=== PATIENT | male | born 1985 | race Caucasian/White ===

== ENCOUNTER 2016-11-15 23:14 | Emergency (ER) | payer OTHER ==
[~2016-11-15] VITALS: Ht 170.2 cm; Wt 95.3 kg
--- NOTE | 2016-11-16 00:45 | ED GI/GU/ABDOMINAL COMPLAINT ---
History of Present Illness General Chief Complaint: Male Genitourinary Problems Stated Complaint: CAN'T UNRINATE X2 DAYS BURNING Source: patient Exam Limitations: no limitations Vital Signs & Intake/Output Vital Signs & Intake/Output Vital Signs Date Time Temp Pulse Resp B/P B/P Pulse O2 O2 Flow FiO2 Mean Ox Delivery Rate 11/16 0039 Room Air 11/15 2353 98.9 97 16 132/89 98 Room Air ED Intake and Output 11/16 0000 11/15 1200 Intake Total Output Total Balance Patient 210 lb Weight Weight Reported by Patient Measurement Method Allergies Coded Allergies: ibuprofen (From MOTRIN) (Unsure 10/02/15) Triage Note: TRIAGE: PAIN AND HESITANCY AND URGENCY OF URINATION X2 DAYS. REPORTS UNPROTECTED SEX 4-5 DAYS AGO. DENIES PENILE DISCHARGE. AFEBRILE. URINE TRIO SENT FROM TRIAGE Triage Nurses Notes Reviewed? yes HPI: Patient presents with a three-day history of dysuria, frequency and dark color to his urine. Patient is nervous because he had unprotected sex last week. Patient denies any penile discharge. There is no flank pain. There is no nausea or vomiting. There is no abdominal pain. There is no pain when he is not urinating. He denies any pedal or chills. Past History Travel History Traveled to [place] past 21 day No Medical History Any Pertinent Medical History? none Neurological: NONE EENT: NONE Cardiovascular: NONE Respiratory: NONE Gastrointestinal: NONE Hepatic: NONE Renal: NONE Musculoskeletal: NONE Psychiatric: NONE Endocrine: NONE Blood Disorders: NONE Cancer(s): NONE QUALITY ASSURANCE LAB TECHNICIAN/Reproductive: NONE Tetanus Vaccine: 10/02/15 Surgical History Surgical History: non-contributory, N Psychosocial History What is your primary language Citizen [place] Tobacco Use: Current Daily Use Daily Tobacco Use Amount/Type: => 5 Cigarettes daily ETOH Use: occasional use Illicit Drug Use: denies illicit drug use Family History Hx Contributory? No Review of Systems Review of Systems Constitutional: Reports: no symptoms. EENTM: Reports: no symptoms. Respiratory: Reports: no symptoms. Cardiovascular: Reports: no symptoms. GI: Reports: no symptoms. Genitourinary: Reports: see HPI, dysuria, frequency, hematuria, urgency. Musculoskeletal: Reports: no symptoms. Skin: Reports: no symptoms. Neurological/Psychological: Reports: no symptoms. Hematologic/Endocrine: Reports: no symptoms. Immunologic/Allergic: Reports: no symptoms. All Other Systems: Reviewed and Negative Physical Exam Physical Exam General Appearance: well developed/nourished, alert, awake, anxious Head: atraumatic, normal appearance Eyes: Bilateral: PERRL, EOMI. Ears, Nose, Throat, Mouth: hearing grossly normal, moist mucous membrane Neck: normal inspection, supple, full range of motion Respiratory: normal breath sounds, chest non-tender, no respiratory distress, lungs clear Cardiovascular: regular rate/rhythm, normal peripheral pulses Gastrointestinal: normal bowel sounds, soft, non-tender, no organomegaly Back: normal inspection, normal range of motion, NO CVA TENDERNESS Extremities: normal range of motion Neurologic/Psych: no motor/sensory deficits, awake, alert, oriented x 3, normal gait, normal mood/affect Skin: intact, normal color, warm/dry Core Measures ACS in differential dx? No Severe Sepsis Present: No Septic Shock Present: No Progress Differential Diagnosis: ureterolithiasis, urinary retention, urethritis, UTI/ pyelo Plan of Care: Orders Procedure Date/time Status COMPREHENSIVE METABOLIC PANEL 11/16 0046 Complete CBC WITHOUT DIFFERENTIAL 11/16 0046 Complete Add-on Test (ER Only) 11/16 0025 Active URINALYSIS 11/15 2324 Complete Laboratory Tests 11/16/16 0100: Anion Gap 13, Estimated GFR > 60, BUN/Creatinine Ratio 15.0, Glucose 112 H, Calcium 9.6, Total Bilirubin 0.6, AST 24, ALT 33, Alkaline Phosphatase 48, Total Protein 6.5, Albumin 4.2, Globulin 2.3, Albumin/Globulin Ratio 1.8, CBC w Diff NO MAN DIFF REQ, RBC 4.65 L, MCV 89.4, MCH 30.0, RDW 12.8, MPV 6.8 L, Gran % 56.3, Lymphocytes % 32.3, Monocytes % 8.7, Eosinophils % 2.3, Basophils % 0.4, Absolute Granulocytes 5.7, Absolute Lymphocytes 3.3, Absolute Monocytes 0.9 H, Absolute Eosinophils 0.2, Absolute Basophils 0, PUBS MCHC 33.5 11/15/16 2330: Urine Color YEL, Urine Clarity CLDY H, Urine pH 6.0, Ur Specific [place] 1.020, Urine Protein 30 H, Urine Ketones TRACE H, Urine Nitrite NEG, Urine Bilirubin NEG@ICTO, Urine Urobilinogen 1.0, Ur Leukocyte Esterase NEG, Ur Microscopic SEDIMENT EXAMINED, Urine RBC >75 H, Urine Crystals 1+ CA OX H, Urine Mucus FEW , Urine Hemoglobin LARGE H, Urine Glucose NEG Diagnostic Imaging: Viewed by Me: CT Scan. Discussed w/RAD: CT Scan. Radiology Impression: PATIENT: AMALIA JENKINS JR PRESENT AGE: 31 PATIENT ACCOUNT NO: [id number] : 87 LOCATION: [facility], [place] ORDERING PHYSICIAN: STEVE STALLWORTH MD SERVICE DATE: 11/16/16 EXAM TYPE: CAT - CT ABD & PELVIS W/O IV CONTRAS EXAMINATION: CT ABDOMEN AND PELVIS WITHOUT CONTRAST CLINICAL INFORMATION: Kidney stone. COMPARISON: CT scan of abdomen and pelvis 05/13/2010. TECHNIQUE: Multidetector volumetric imaging was performed from the superior aspect of the liver through the pubic symphysis. Sagittal and coronal reformatted images were obtained on the technologist's workstation. DLP: 802.83 mGy-cm FINDINGS: LUNG BASES: There is minimal bibasilar subsegmental atelectasis. No pleural or pericardial effusion. LIVER, GALLBLADDER , AND BILIARY TREE: Unenhanced liver attenuation is homogeneous with grossly no evidence of a discrete hepatic parenchymal mass. The gallbladder is unremarkable with no evidence of radiopaque gallstones, gallbladder wall thickening, or obvious pericholecystic inflammatory changes. PANCREAS: Unremarkable. SPLEEN: Unremarkable. ADRENAL GLANDS: Unremarkable. KIDNEYS, URETERS, AND BLADDER: There is a 2 mm calculus that appears be located within the urinary bladder best illustrated on axial image 707 of 848 series 3. There is mild stranding along the course of the right ureter. No calcifications visualized within either kidney or either ureter. No abnormal perinephric inflammation or collection. GASTROINTESTINAL TRACT: The stomach is physiologically distended with fluid. Small bowel and colon is normal. Appendix is normal. There is no free intraperitoneal air or fluid. ABDOMINAL WALL: No significant hernia is appreciated. LYMPH NODES: Normal. VASCULAR: Unremarkable. OSSEOUS STRUCTURES: Unremarkable. IMPRESSION: There is a 2 mm calculus located within the urinary bladder and mild stranding along the course of the right ureter. No additional calculi are visualized within either kidney or either ureter. DICTATED BY: RYANN FRYE,RUTH Mckee DATE/TIME DICTATED:11/16/16 0243 BRINEYARD SUPERVISOR: CRISTIN DATE/TIME TRANSCRIBED:11/16/16 / 0243 CONFIDENTIAL, DO NOT COPY WITHOUT APPROPRIATE AUTHORIZATION. <Electronically signed in Other Vendor System> SIGNED BY: RUTH GARZON MD 11/16/16 0250 Initial ED EKG: none Departure Departure Disposition: HOME OR SELF CARE Condition: Stable Clinical Impression Primary Impression: Kidney stone Referrals: PATIENT HAS NO PRIMARY CARE DR (PCP/Family) ZACHARY CHAMPION MD Additional Instructions: DRINK PLENTY OF FLUIDS RETURN FOR ANY CONCERNS Departure Forms: Customer Survey General Discharge Information
[2016-11-16 01:05] LABS: ABSOLUTE BASOPHIL COUNT 0 /CUMM (0.0-0.2); ABSOLUTE EOSINOPHIL COUNT 0.2 /CUMM (0.0-0.7); ABSOLUTE GRANULOCYTE CT 5.7 /CUMM (1.4-6.5); ABSOLUTE LYMPH COUNT 3.3 /CUMM (1.2-3.4); ABSOLUTE MONOCYTE COUNT 0.9 /CUMM (0.10-0.60); BASOPHIL % 0.4 % (0.0-2.0); EOSINOPHIL % 2.3 % (0-5); GRANULOCYTE % 56.3 % (42.2-75.2); HEMATOCRIT 41.5 % (42-52); MEAN CORPUSCULAR HGB CONC 33.5 G/DL (33.0-37.0); MEAN CORPUSCULAR VOLUME 89.4 FL (80.0-94.0); MEAN PLATELET VOLUME 6.8 FL (7.4-10.4); PLATELET COUNT 316 /CUMM (130-400); RBC DISTRIBUTION WIDTH 12.8 % (11.5-14.5); RED BLOOD CELL CT 4.65 /CUMM (4.70-6.10); WHITE BLOOD CELL COUNT 10.2 /CUMM (4.8-10.8)
[2016-11-16 02:30] VITALS: BP 128/85
--- NOTE | 2016-11-16 02:50 | CT SCAN REPORT ---
EXAMINATION: CT ABDOMEN AND PELVIS WITHOUT CONTRAST CLINICAL INFORMATION: Kidney stone. COMPARISON: CT scan of abdomen and pelvis 05/13/2010. TECHNIQUE: Multidetector volumetric imaging was performed from the superior aspect of the liver through the pubic symphysis. Sagittal and coronal reformatted images were obtained on the technologist's workstation. DLP: 802.83 mGy-cm FINDINGS: LUNG BASES: There is minimal bibasilar subsegmental atelectasis. No pleural or pericardial effusion. LIVER, GALLBLADDER, AND BILIARY TREE: Unenhanced liver attenuation is homogeneous with grossly no evidence of a discrete hepatic parenchymal mass. The gallbladder is unremarkable with no evidence of radiopaque gallstones, gallbladder wall thickening, or obvious pericholecystic inflammatory changes. PANCREAS: Unremarkable. SPLEEN: Unremarkable. ADRENAL GLANDS: Unremarkable. KIDNEYS, URETERS, AND BLADDER: There is a 2 mm calculus that appears be located within the urinary bladder best illustrated on axial image 707 of 848 series 3. There is mild stranding along the course of the right ureter. No calcifications visualized within either kidney or either ureter. No abnormal perinephric inflammation or collection. GASTROINTESTINAL TRACT: The stomach is physiologically distended with fluid. Small bowel and colon is normal. Appendix is normal. There is no free intraperitoneal air or fluid. ABDOMINAL WALL: No significant hernia is appreciated. LYMPH NODES: Normal. VASCULAR: Unremarkable. OSSEOUS STRUCTURES: Unremarkable. IMPRESSION: There is a 2 mm calculus located within the urinary bladder and mild stranding along the course of the right ureter. No additional calculi are visualized within either kidney or either ureter.
== END 2016-11-16 03:10 ==
LOC: ERH 23:14
PROVIDERS: Emergency Medicine
DX: N20.0 Calculus of kidney (principal)
CPT/HCPCS: 74176; 81001

== ENCOUNTER 2018-02-11 02:16 | Emergency (ER) | payer OTHER ==
[2018-02-11 05:12] LABS: ABSOLUTE BASOPHIL COUNT 0 /CUMM (0.0-0.2); ABSOLUTE EOSINOPHIL COUNT 0.1 /CUMM (0.0-0.7); ABSOLUTE GRANULOCYTE CT 12.4 /CUMM (1.4-6.5); ABSOLUTE LYMPH COUNT 2.2 /CUMM (1.2-3.4); ABSOLUTE MONOCYTE COUNT 0.3 /CUMM (0.10-0.60); BASOPHIL % 0.2 % (0.0-2.0); EOSINOPHIL % 0.4 % (0-5); GRANULOCYTE % 82.4 % (42.2-75.2); HEMATOCRIT 43.9 % (42-52); MEAN CORPUSCULAR HGB 29.7 PG (27.0-31.0); MEAN CORPUSCULAR HGB CONC 33.8 G/DL (33.0-37.0); MEAN CORPUSCULAR VOLUME 87.7 FL (80.0-94.0); MEAN PLATELET VOLUME 7.3 FL (7.4-10.4); PLATELET COUNT 373 /CUMM (130-400); RBC DISTRIBUTION WIDTH 13.3 % (11.5-14.5)
--- NOTE | 2018-02-11 05:14 | ED GENERAL ADULT ---
See Addendum History of Present Illness General Chief Complaint: ETOH/Drug Related Complaint Stated Complaint: BIBA HEROIN WITHDRAWL Source: patient, old records Exam Limitations: no limitations Vital Signs & Intake/Output Vital Signs & Intake/Output Vital Signs Date Time Temp Pulse Resp B/P B/P Pulse O2 O2 Flow FiO2 Mean Ox Delivery Rate 02/11 0234 98.2 78 16 98 Room Air Room Air Allergies Coded Allergies: ibuprofen (From MOTRIN) (Unsure 10/02/15) Reconcile Medications No Known Home Medications Triage Note: PT TO TRIAGE FOR WITHDRAWL SYMPTOMS. COLD SWEATS, HEADACHE, NAUSEA AND IRRITABILITY. Triage Nurses Notes Reviewed? 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 He last used 12 hours prior to admission. He ran out of money. He requests detox for heroin. He complains of nausea chills diarrhea muscle aches anxiety. He denies fever chills vomiting chest pain cough shortness breath headache dysuria rash bleeding. Past History Travel History Traveled to [place] past 21 day No Medical History Any Pertinent Medical History? see below for history Neurological: NONE EENT: NONE Cardiovascular: NONE Respiratory: NONE Gastrointestinal: NONE Hepatic: NONE Renal: NONE Musculoskeletal: NONE Psychiatric: NONE Endocrine: NONE Blood Disorders: NONE Cancer(s): NONE MANAGER OF DATA/Reproductive: NONE Tetanus Vaccine: 10/02/15 Surgical History Surgical History: non-contributory, N Psychosocial History Who do you live with Father What is your primary language Spanish Tobacco Use: Current Daily Use Daily Tobacco Use Amount/Type: => 5 Cigarettes daily ETOH Use: denies use Illicit Drug Use: heroin Family History Hx Contributory? No Review of Systems Review of Systems Constitutional: Reports: see HPI, chills, malaise. EENTM: Reports: no symptoms. Respiratory: Reports: no symptoms. Cardiovascular: Reports: no symptoms. GI: Reports: see HPI, diarrhea, nausea. Genitourinary: Reports: no symptoms. Musculoskeletal: Reports: see HPI, muscle pain. Skin: Reports: no symptoms. Neurological/Psychological: Reports: no symptoms. Hematologic/Endocrine: Reports: no symptoms. Immunologic/Allergic: Reports: no symptoms. All Other Systems: Reviewed and Negative Physical Exam Physical Exam General Appearance: well developed/nourished, alert, awake, anxious, severe distress, obese Head: atraumatic, normal appearance Eyes: Bilateral: normal appearance, PERRL, EOMI. Ears, Nose, Throat: normal pharynx, normal ENT inspection, hearing grossly normal Neck: normal inspection, supple, full range of motion, JVD, limited range of motion Respiratory: normal breath sounds, chest non-tender, no respiratory distress, quiet respiration, lungs clear Cardiovascular: regular rate/rhythm, normal peripheral pulses, norml femoral pulses equa Peripheral Pulses: 4+ carotid (R), 4+ carotid (L) Gastrointestinal: normal bowel sounds, soft, non-tender, no organomegaly Back: normal inspection, normal range of motion Extremities: normal inspection, normal capillary refill, normal range of motion, no edema Neurologic/Psych: no motor/sensory deficits, awake, alert, oriented x 3, normal gait, normal mood/affect, 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 Skin: intact, normal color, warm/dry Lymphatic: no anterior cervical tucker Core Measures ACS in differential dx? No CVA/TIA Diagnosis: No Sepsis Present: No Sepsis Focused Exam Completed? No Progress Differential Diagnoses I considered the following diagnoses in my evaluation of the patient: Drug withdrawal drug overdose Plan of Care: Orders Procedure Date/time Status [facility] 02/11 0700 Active Patient Safety Monitor 02/11 06 Active URINE DRUG SCREEN FOR ER ONLY 02/11 06 Active Restraint- Medical 02/11 617 Active MAGNESIUM 02/12 428 Complete LIPASE 02/12 428 Complete ETHANOL 02/12 428 Complete COMPREHENSIVE METABOLIC PANEL 02/12 428 Complete CBC WITHOUT DIFFERENTIAL 02/12 428 Complete Laboratory Tests 02/11/18 0625: Methadone Screen Pending, Barbiturate Screen Pending, Ur Phencyclidine Scrn Pending, Amphetamines Screen Pending, U Benzodiazepines Scrn Pending, Urine Cocaine Screen Pending, Urine Cannabis Screen Pending 02/11/18 0459: Anion Gap 10, Estimated GFR > 60, BUN/Creatinine Ratio 16.3, Glucose 116 H, Calcium 9.5, Magnesium 2.1, Total Bilirubin 0.3, AST 26, ALT 35, Alkaline Phosphatase 60, Total Protein 6.9, Albumin 4.0, Globulin 2.9, Albumin/Globulin Ratio 1.4, Lipase 111, CBC w Diff NO MAN DIFF REQ, RBC 5.00, MCV 87.7, MCH 29.7, MCHC 33.8, RDW 13.3, MPV 7.3 L, Gran % 82.4 H, Lymphocytes % 14.9 L, Monocytes % 2.1, Eosinophils % 0.4, Basophils % 0.2, Absolute Granulocytes 12.4 H, Absolute Lymphocytes 2.2, Absolute Monocytes 0.3, Absolute Eosinophils 0.1, Absolute Basophils 0, Serum Alcohol < 10.0 Initial ED EKG: none Hand-Off Endorsed To: Lesia FRYE,Joaquin Morales Endorsed Time: 0700 Pending: other (CIWA) Comments: Agitation with poor response to ativan, benadryl. Ketamine IM and net bed effective. Departure Departure Disposition: STILL A PATIENT Condition: Fair Clinical Impression Primary Impression: Opiate withdrawal Referrals: Patient Has No Primary Care Dr (PCP/Family) Departure Forms: Customer Survey General Discharge Information Prescriptions: Current Visit Scripts No Known Home Medications Critical Care Note Critical Care Note Critical Care Time: 30-74 min (40)
[2018-02-11] MEDS ORDERED: CLONIDINE HCL0.1 MG PO (17:38)
[2018-02-11] MEDS ORDERED: GABAPENTIN300 M2 PO (17:38)
[2018-02-11 19:09] VITALS: BP 118/60
== END 2018-02-11 19:13 ==
LOC: ERH 02:16
PROVIDERS: Emergency Medicine
DX: F11.20 Opioid dependence, uncomplicated (principal); F17.210 Nicotine dependence, cigarettes, uncomplicated
CPT/HCPCS: 80307; 96372; 96374; 96375; 96376; G0480; J0131; J1200; J2405